=== PATIENT | female | born 1955 | race Caucasian/White ===

== ENCOUNTER 2017-10-05 03:57 | Emergency (ER) | payer BC ==
[~2017-10-05] VITALS: Ht 162.6 cm; Wt 54.7 kg
[2017-10-05 04:04] VITALS: Ht 162.6 cm; Wt 54.7 kg
[2017-10-05] MEDS ORDERED: SODIUM CHLORIDE 0.9% 1000ML 1,000 ML IV STA ×2 (04:13→05:27)
[2017-10-05] MEDS ORDERED: ONDANSETRON INJ 2 MG/ML 2 ML VIAL IV STA (04:13)
[2017-10-05] MEDS ORDERED: DiphenhydrAMINE HCL 50 MG/ML VIAL IV STA (04:13)
[2017-10-05 04:27] LABS: BASO % 0.5 %; BASO ABS # 0.07 K/uL (0-0.2); EOS % 1.5 %; EOS ABS # 0.22 K/uL (0-0.5); HEMATOCRIT 39.1 % (37-47); HEMOGLOBIN 13.7 g/dL (12.0-16.0); IG# 0.06 K/uL (0.00-0.02); LYMPH % 16.7 %; LYMPH ABS # 2.43 K/uL (1.2-3.4); MEAN CELL VOLUME 89.9 fL (80-100); MEAN CORPUSCULAR HEMOGLOBIN 31.5 pg (25-34); MEAN PLATELET VOLUME 10.9 fL (7.4-10.4); MONO % 7.3 %; MONO ABS # 1.06 K/uL (0.11-0.59); NEUT % 73.6 %; NEUT ABS # 10.74 K/uL (1.4-6.5); PLATELET COUNT 247 K/uL (130-400); RED CELL DISTRIBUTION WIDTH CV 12.9 % (11.5-14.5); RED CELL DISTRIBUTION WIDTH SD 42.5 fL (36.4-46.3); WHITE BLOOD COUNT 14.58 K/uL (4.8-10.8)
--- NOTE | 2017-10-05 04:28 | EMERGENCY ROOM VISIT NOTE ---
History Report prepared by Dori: Tucker Snider Under the Supervision of: Dr. Reji Machado M.D. First contact with patient: 04:07 Chief Complaint: VOMITING Stated Complaint: VOMITING History of Present Illness The patient is a 62 year old female who presents to the Emergency Room with complaints of worsening vomiting beginning 2.5 hours ago. She currently rates her discomfort a 2/10 in severity. The patient states she is on her way home from [place] and believes she has food poisoning from [employer]. She reports she is not in pain, she is just uncomfortable. The patient notes she vomits every day except it has been uncontrollable for the past few hours. She states she has a history of Lupus and becomes severely dehydrated when she starts vomiting. The patient reports she has not been to the ED in a few years. She notes she is typically given Zofran and fluids while in the ED, and she feel better. The patient states she does not have Zofran at home. She denies a history of cardiac problems, leg swelling, chest pain, shortness of breath, abdominal pain, abdominal surgeries, fevers, and a headache. The patient reports she took her night time medications and vomited them up by accident. Source of History: patient Onset: 2.5 hours ago Symptom Intensity: 2/10 Quality: other (vomiting) Timing: worsening Modifying Factors (Relieving): other (Zofran and fluid) Associated Symptoms: No fevers, No headache, No chest pain, No SOB, No abdominal pain Note: Denies: leg swelling Review of Systems See HPI for pertinent positives & negatives. A total of 10 systems reviewed and were otherwise negative. Past Medical & Surgical Medical Problems: (1) Lupus Family History Patient reports no known family medical history. Social History Smoking Status: Current Some Day Smoker Marital Status: Occupation Status: employed Current/Historical Medications Scheduled Hydroxychloroquine Sulfate (Plaquenil), Unknown Dose PO DIRECTED Naproxen Tab (Naprosyn), Unknown Dose PO DIRECTED Trazodone Hcl (Desyrel), Unknown Dose PO DIRECTED Venlafaxine Hcl (Effexor), Unknown Dose PO DIRECTED Allergies Coded Allergies: Sulfa Antibiotics (Verified Allergy, Unknown, rash, 10/05/17) Physical Exam Vital Signs Date Time Temp Pulse Resp B/P (MAP) Pulse Ox O2 Delivery O2 Flow Rate FiO2 5/5/18 06:48 78 20 158/78 96 10/05/17 05:18 80 18 148/78 96 Room Air 10/05/17 04:29 81 22 176/87 100 Room Air 10/05/17 04:04 98 32 191/74 99 Room Air Physical Exam GENERAL: Patient is uncomfortable appearing and in mild distress. Constantly dry heaving. Dehydrated appearing. EYES: No scleral icterus, unremarkable pupils. ENT: Mucous membranes dry, no nasal congestion. NECK: No masses appreciated, no meningismus, trachea is midline. RESPIRATORY: No dyspnea. Clear to auscultation and equal bilaterally. No wheeze , no rhonchi. CARDIOVASCULAR: Regular rate and rhythm. No murmurs, rubs, gallops appreciated. GASTROINTESTINAL: Abdomen soft, nontender, no peritonitis. Bowel sounds positive. No masses appreciated. BACK: No midline tenderness, no CVA tenderness EXTREMITIES: Normal motion all extremities, no cyanosis, no edema. NEUROLOGIC: Alert and oriented, no acute motor or sensory deficits, no focal weakness, cranial nerves grossly intact. SKIN: No jaundice, no diaphoresis. Red dots across upper abdomen that is stated to be chronic. Medical Decision & Procedures Laboratory Results 10/05/17 04:10 Red Blood Count 4.35, Mean Corpuscular Volume 89.9, Mean Corpuscular Hemoglobin 31.5, Mean Corpuscular Hemoglobin Concent 35.0, Mean Platelet Volume 10.9, Neutrophils (%) (Auto) 73.6, Lymphocytes (%) (Auto) 16.7, Monocytes (%) (Auto) 7.3, Eosinophils (%) (Auto) 1.5, Basophils (%) (Auto) 0.5, Neutrophils # (Auto) 10.74, Lymphocytes # (Auto) 2.43, Monocytes # (Auto) 1.06, Eosinophils # (Auto) 0.22, Basophils # (Auto) 0.07 10/05/17 04:10 Test 10/05/17 04:10 10/05/17 05:12 White Blood Count 14.58 K/uL (4.8-10.8) Red Blood Count 4.35 M/uL (4.2-5.4) Hemoglobin 13.7 g/dL (12.0-16.0) Hematocrit 39.1 % (37-47) Mean Corpuscular Volume 89.9 fL (80-100) Mean Corpuscular Hemoglobin 31.5 pg (25-34) Mean Corpuscular Hemoglobin Concent 35.0 g/dl (32-36) Platelet Count 247 K/uL (130-400) Mean Platelet Volume 10.9 fL (7.4-10.4) Neutrophils (%) (Auto) 73.6 % Lymphocytes (%) (Auto) 16.7 % Monocytes (%) (Auto) 7.3 % Eosinophils (%) (Auto) 1.5 % Basophils (%) (Auto) 0.5 % Neutrophils # (Auto) 10.74 K/uL (1.4-6.5) Lymphocytes # (Auto) 2.43 K/uL (1.2-3.4) Monocytes # (Auto) 1.06 K/uL (0.11-0.59) Eosinophils # (Auto) 0.22 K/uL (0-0.5) Basophils # (Auto) 0.07 K/uL (0-0.2) RDW Standard Deviation 42.5 fL (36.4-46.3) RDW Coefficient of Variation 12.9 % (11.5-14.5) Immature Granulocyte % (Auto) 0.4 % Immature Granulocyte # (Auto) 0.06 K/uL (0.00-0.02) Anion Gap 10.0 mmol/L (3-11) Est Creatinine Clear Calc Drug Dose 49.4 ml/min Estimated GFR () 68.3 Estimated GFR (Non- 58.9 BUN/Creatinine Ratio 9.0 (10-20) Calcium Level 9.6 mg/dl (8.5-10.1) Total Bilirubin 0.4 mg/dl (0.2-1) Direct Bilirubin < 0.1 mg/dl (0-0.2) Aspartate Amino Transf (AST/SGOT) 30 U/L (15-37) Alanine Aminotransferase (ALT/SGPT) 39 U/L (12-78) Alkaline Phosphatase 98 U/L (45-117) Total Protein 7.7 gm/dl (6.4-8.2) Albumin 4.6 gm/dl (3.4-5.0) Lipase 266 U/L (73-393) Urine Color YELLOW Urine Appearance CLEAR (CLEAR) Urine pH 7.5 (4.5-7.5) Urine Specific [place] 1.011 (1.000-1.030) Urine Protein NEG (NEG) Urine Glucose (UA) NEG (NEG) Urine Ketones NEG (NEG) Urine Occult Blood TRACE (NEG) Urine Nitrite NEG (NEG) Urine Bilirubin NEG (NEG) Urine Urobilinogen NEG (NEG) Urine Leukocyte Esterase TRACE (NEG) Urine WBC (Auto) 1-5 /hpf (0-5) Urine RBC (Auto) 0-4 /hpf (0-4) Urine Hyaline Casts (Auto) 0 /lpf (0-5) Urine Epithelial Cells (Auto) 0-5 /lpf (0-5) Urine Bacteria (Auto) NEG (NEG) Laboratory results as reviewed by me. Medications Administered Medications (Trade) Dose Ordered Sig/Beth Route Start Time Stop Time Status Last Admin Dose Admin Ondansetron HCl (Zofran Inj) 4 mg NOW STAT IV 10/05/17 04:13 10/05/17 04:14 DC 10/05/17 04:23 4 MG Diphenhydramine HCl (Benadryl Inj) 25 mg NOW STAT IV 10/05/17 04:13 10/05/17 04:14 DC 10/05/17 04:23 25 MG Sodium Chloride 1,000 ml @ 999 mls/hr Q1H1M STAT IV 10/05/17 04:13 10/05/17 05:13 DC 10/05/17 04:23 999 MLS/HR Promethazine HCl 12.5 mg/Sodium Chloride 50.5 ml @ 204 mls/hr NOW STAT IV 10/05/17 04:41 10/05/17 04:55 DC 10/05/17 04:41 204 MLS/HR Lorazepam (Ativan Inj) 1 mg NOW STAT IV 10/05/17 05:27 10/05/17 05:28 DC 10/05/17 05:32 1 MG Sodium Chloride 1,000 ml @ 999 mls/hr Q1H1M STAT IV 10/05/17 05:27 10/05/17 06:27 DC 10/05/17 05:33 999 MLS/HR Ondansetron HCl (ZOFRAN ODT 4MG Home Pack) 1 homepack UD ONCE PO 10/05/17 06:30 10/05/17 06:31 DC 10/05/17 06:35 1 HOMEPACK ED Course 0409: The patient was evaluated in room B02. A complete history and physical exam was performed. 0440: I reevaluated the patient. She is still nauseous. 0514: I reevaluated the patient. She is still nauseous and is refusing any more medication. She states she needs time to think about it. 0524: I reevaluated the patient. She is yelling "I cannot do this anymore. Please do something." She is agreeable to Ativan and IV fluids. 0558: I reevaluated the patient. She is sleeping with no further distress. 0630: Reevaluated the patient. She has complete resolution of her symptoms. Discussed results and discharge instructions: she verbalized understanding and agreement. The patient is ready for discharge. Medical Decision Differential: Gastroenteritis, Food Borne, Esophageal Perforation, , Electrolyte Abnormality, Dehydration, Intraabdominal Infection, UTI/ Pyelonephritis, Bowel Obstruction, Biliary Pathology, amongst other pathology entertained. 62 yr old female arrives with intractable nausea/dry heaves. Soft, non-tender abdomen. Labs look OK. Zofran/Phenergan minimally effective. Complete resolution of symptoms with IV ativan and IV fluids. Feeling well and wants to be discharged. Will send with a few Zofran to go and reviewed symptoms requiring RTED. She states this has happened before and she feels much better. Medication Reconcilliation Current Medication List: was personally reviewed by me Blood Pressure Screening Patient's blood pressure: Elevated blood pressure Blood pressure disposition: Elevated BP felt to be situational Impression Primary Impression: Nausea & vomiting Additional Impressions: Dry heaves Abdominal cramping Dehydration Scribe Attestation The scribe's documentation has been prepared under my direction and personally reviewed by me in its entirety. I confirm that the note above accurately reflects all work, treatment, procedures, and medical decision making performed by me. Departure Information Dispostion Home / Self-Care Referrals No Doctor, Assigned (PCP) Forms HOME CARE DOCUMENTATION FORM, IMPORTANT VISIT INFORMATION Patient Instructions My [facility] Additional Instructions Continue to attempt to keep well hydrated. Return to ED if fevers, worsening pain, passing out or vomiting out of control. We are always here to help. Eat a light bland diet over the next few days while recovering. Follow up with your primary care provider in next few days for recheck. Problem Qualifiers
[2017-10-05] MEDS ORDERED: PROMETHAZINE HCL INJ 12.5 MG in SODIUM CHLORIDE 0.9% 50ML 50 ML IV STA (04:41)
[2017-10-05] MEDS ORDERED: HYDR200T5 PO (04:49)
[2017-10-05] MEDS ORDERED: EFF/375 PO (04:50)
[2017-10-05] MEDS ORDERED: TRAZ-119 PO (04:51)
[2017-10-05] MEDS ORDERED: NAPR250T3 PO (04:52)
[2017-10-05 04:54] LABS: ALBUMIN 4.6 gm/dl (3.4-5.0); ALKALINE PHOSPHATASE 98 U/L (45-117); ALT/SGPT 39 U/L (12-78); AST/SGOT 30 U/L (15-37); BLOOD UREA NITROGEN 9 mg/dl (7-18); CALCIUM 9.6 mg/dl (8.5-10.1); CARBON DIOXIDE 21 mmol/L (21-32); CREATININE 1.02 mg/dl (0.60-1.20); GLUCOSE 127 mg/dl (70-99); LIPASE 266 U/L (73-393); POTASSIUM 3.6 mmol/L (3.5-5.1); SODIUM 134 mmol/L (136-145); TOTAL PROTEIN 7.7 gm/dl (6.4-8.2)
[2017-10-05] MEDS ORDERED: LORAZEPAM 2 MG/ML 1 ML VIAL IV STA (05:27)
[2017-10-05] MEDS ORDERED: ONDANSETRON HOME PACK 4MG OD TAB PO ONE (06:30)
[2017-10-05 06:48] VITALS: BP 158/78; PULSE 78; O2SAT 96
== END 2017-10-05 06:49 | disposition home or self-care (01) ==
LOC: C.EDB 03:59
DX: R11.2 Nausea with vomiting, unspecified (principal); E86.0 Dehydration; R10.9 Unspecified abdominal pain; F17.210 Nicotine dependence, cigarettes, uncomplicated